=== PATIENT | male | born 1980 | race Hispanic/Latino ===

== ENCOUNTER 2022-11-01 16:44 | Emergency (ER) | payer SELFPAY ==
[2022-11-01 16:48] VITALS: BP 123/71; PULSE 100; RESP 16; TEMP 36.8; O2SAT 97
--- NOTE | 2022-11-01 17:17 | ED.GENADULT ---
HPI - General Adult General Chief complaint: Fall Stated complaint: CHIN LAC S/P 8FT FALL Time Seen by Provider: 11/01/22 17:09 Source: patient Mode of arrival: ambulatory Limitations: no limitations History of Present Illness HPI narrative: This is a 42-year-old male who presents to the ED with chief complaint of a fall off of a ladder today with subsequent chin laceration. Patient states he was up on the ladder about 8 foot high when the ladder slid out from underneath him. He states he fell straight down but is unsure what he hit his chin on. He states he has a laceration there and a small 1 on his right elbow. Denies any pain at all. Denies any further site of injury. Denies numbness, weakness, neck pain, back pain, joint pains. Denies LOC. He is not on blood thinners. States his tetanus is up-to-date. Related Data Allergies Allergy/AdvReac Type Severity Reaction Status Date / Time No Known Allergies Allergy Verified 11/01/22 17:04 Review of Systems Review of Systems: All systems as dictated in HPI Exam Narrative: GENERAL: Well-appearing, well-nourished, and in no acute distress. HEAD: Normocephalic, atraumatic. No tenderness throughout the chin, mandible, head. EYES: PERRLA and EOMI. ENT: Nares clear, no rhinorrhea or epistaxis. Mucous membranes moist. Oropharynx without tonsillar hypertrophy exudate or other lesions. NECK: Supple. No adenopathy or masses. CHEST: No respiratory distress. Clear to auscultation. No wheezes rales or rhonchi HEART: Regular rate and rhythm. No murmur heard. Normal peripheral pulses. ABDOMEN: Soft, nontender, nondistended, normal active bowel sounds. MSK: Normal range of motion. No edema. No tenderness throughout the joints or throughout the entire spine. No deformities. Neurovascularly intact distally. SKIN: There is a 4 cm linear laceration to the inferior chin. Wound depth shows subcutaneous tissue. Bleeding controlled. The wound does not go through and through. There is a second laceration to the right elbow. It is 1 cm. Bleeding controlled. Superficial in nature. NEURO: Alert and oriented x3. No focal deficits. PSYCH: Normal mood and affect. Course Vital Signs Vital signs: Vital Signs Temperature 98.3 F 11/01/22 16:48 Pulse Rate 100 11/01/22 16:48 Respiratory Rate 16 11/01/22 16:48 Blood Pressure 123/71 11/01/22 16:48 Pulse Oximetry 97 11/01/22 16:48 Oxygen Delivery Room Air 11/01/22 16:48 Temperature 98.3 F 11/01/22 16:48 Pulse Rate 87 11/01/22 18:25 Respiratory Rate 15 11/01/22 18:25 Blood Pressure 123/69 11/01/22 18:25 Pulse Oximetry 99 11/01/22 18:25 Oxygen Delivery Room Air 11/01/22 16:48 Procedures Laceration Laceration 1: Date: 11/01/22 Time: 18:11 Site: face Size (cm): 4 Description: linear Depth: simple, single layer (Subq) Local Anesthetic: lidocaine 1% and with epi Amount of anesthesia used (mL): 3 Pre-repair: wound explored, irrigated extensively and deep structures intact ====== Skin Level ====== Skin layer closed with: nylon Size (cm): 4-0 Number of sutures: 7 Technique: simple, interrupted ====== Subcutaneous Layer ====== Subcutaneous layer closed with: vicryl Size: 4-0 Number of sutures: 3 Technique: simple, interrupted ====== Muscle Layer ====== ====== Tendon Layer ====== Laceration 2: Date: 11/01/22 Time: 18:16 Site: upper extremity (R elbow) Side (If applicable): right Size (cm): 1 Description: linear Depth: simple, single layer Local Anesthetic: none Pre-repair: wound explored and irrigated extensively ====== Skin Level ====== Skin layer closed with: nylon Size (cm): 4-0 Number of sutures: 1 Technique: simple, interrupted ====== Subcutaneous Layer ===
[2022-11-01] MEDS: LIDO 1%/EPINEPHRINE 1:100,000 20 ML VIAL 10 ML INFILTRATE (17:22)
[2022-11-01 18:25] VITALS: BP 123/69; PULSE 87; RESP 15; O2SAT 99
== END 2022-11-01 18:26 | disposition home or self-care (01) ==
LOC: ANHED 18:16
PROVIDERS: Emergency Provider Physician Assistant; PCP Physician Assistant
DX: S01.81XA Laceration without foreign body of other part of head, initial encounter (principal); W11.XXXA Fall on and from ladder, initial encounter
CPT/HCPCS: 12013; 99283